=== PATIENT | female | born 1965 | race Caucasian/White ===

== ENCOUNTER 2024-08-15 08:31 | Inpatient (IN) | payer OTHER, SELFPAY ==
[2024-08-09 08:30] VITALS: BMI 23.3
[2024-08-15] VITALS (9 sets, daily range): BP systolic 104–125; BP diastolic 68–80; PULSE 62–89; RESP 12–18; TEMP 36.6–36.7; O2SAT 96–99; BMI 23.6
--- NOTE | 2024-08-15 08:00 | DI.RAD.S_ITS ---
PROCEDURE: XR KNEE LT 1TO2V INDICATIONS: tka TECHNIQUE: 2 view(s) of the knee acquired. COMPARISON: None. FINDINGS: Bones: Patient is status post knee joint arthroplasty. Hardware components are in expected positions. Visualized bony structures are intact. Soft tissues: Overlying postoperative changes are noted. IMPRESSION: Expected post-operative appearance of a knee arthroplasty. Dictated by: Silver Curtis M.D. on 08/15/2024 at 16:06 Approved by: Silver Curtis M.D. on 08/15/2024 at 16:06
[2024-08-15] MEDS: LACTATED RINGERS 1,000 ML 42 ML IV ×2 (08:53→13:37)
[2024-08-15] MEDS: CELECOXIB 200 MG CAPSULE 400 MG PO (09:35)
[2024-08-15] MEDS: ACETAMINOPHEN 325 MG TABLET 975 MG PO ×2 (09:35→15:42)
[2024-08-15] MEDS: VANCOMYCIN 1,000 MG in SODIUM CHLORIDE 0.9% 250 ML 250 MG IV (10:00)
--- NOTE | 2024-08-15 10:46 | PM.PREOP ---
Pre-operative Note Interval Note History & Physical reviewed/Exam performed by Physician: Yes Changes to H&P: No
--- NOTE | 2024-08-15 10:47 | PM.OP.1 ---
Operative Date/Time/Diagnoses Date of procedure: 08/15/24 Time of procedure: 11:30 Pre-op diagnosis: Failed left patellofemoral arthroplasty, left knee OA Post-op diagnosis: same Procedure & Clinicians Procedure: Left total knee arthroplasty complex revision, Same procedure as scheduled: Yes Indications: The patient has had a history of a left knee patellofemoral replacement. She has had failure of her polyethylene on our patellar component on 3 occasions. Her poly is currently failed and she has knee osteoarthritis. She also has a history of a prior tibial tubercle osteotomy. She was brought to the operating room for revision left total knee arthroplasty. Progressively worsening left knee pain with radiographic changes consistent with arthritis. Non-operative management has failed and the patient has requested total knee replacement. The risks, benefits and alternatives to surgery were discussed with the patient prior to proceeding. Risks discussed included, but were not limited to, failure to relieve pain, stiffness, infection, nerve damage, deep venous thrombosis, pulmonary embolism, stroke, coma, heart attack, permanent paralysis and , as well as the potential need for eventual revision of the prosthetic. We discussed in detail concerns regarding her very thin patella and concerns regarding ultimate failure of her extensor mechanism. Unfortunately she has a non cemented patella and a very thin patella. She was already failed this prosthesis 3 times and I think she needs revision to total knee arthroplasty. Surgeon: Gale Eng Conveyor Maintenance Mechanic: Carmen Correa Anesthesia Type: General and Peripheral nerve block Operative Notes Findings: Failed left patellofemoral arthroplasty the patellar component the plastic was grossly displaced and in the suprapatellar pouch. There was significant metal on metal debris. There was no gross loosening of the femoral component. The patella was extremely thin and friable. A metal back patellar component was removed but it was extremely tedious. I used multiple different metal cutting options in order to cut through the posterior pegs in order to preserve as much as possible of the residual patella. Some residual patella shell was available for reconstruction. Really a minimal amount of bone loss occurred but she had a very thin patella to start. The femoral piece in the trochlear groove was removed without difficulty. There was good balance overall. Closure Type: primary Specimen(s): other (Cultures femoral and synovial) Prosthetic devices, grafts, tissues, transplants, or devices: Eng and nephew jaycob BCs us to size 6 femur, size 4 tibia, +9 poly, 32 mm biconvex patellar component Estimated Blood Loss (mL): 250 Blood products transfused: none Tourniquet time (min): 102 Procedure in detail: The patient was seen in the pre-operative area, where the patient identified the left knee as the operative site and this was marked with my initials. The patient received pre-operative antibiotics, and was taken to the operating room and placed on the operative table in the supine position. After satisfactory anesthesia, a multimedia specialist out was performed. The left leg was encircled with a tourniquet about the proximal thigh, and the leg was prepared from the toes to the tourniquet with ChloroPrep in the usual fashion and draped through sterile drapes. The leg was elevated and exsanguinated with Eschmark bandage and the tourniquet inflated to [250] mmHg pressure. A PA was used during the procedure and was essential for intraoperative retraction and safe implantation of the components. The knee was approached through an approximately 24 cm incision centered over the patella and carried into the knee through a medial parapatellar arthrotomy. The loose polyethylene patellar component was found in the suprapatellar pouch. It was carefully removed. I meticulously freed up the patella in order to allow adequate visualization. Attention was initially directed at removing the metal back patella. I carefully freed circumferentially around the patella and then used a combination of multiple small saws including the tPA S saw and multiple metal cutting burs in order to free the surface between the metal backing and the patellar bone. We are as careful as possible in order to avoid injury to the residual patellar bone. I cut through 2 of the pegs on the patellar back component and then meticulously freed around the metal backed patellar component and removed the metal backing in the residual peg as a single unit. I then used a K-wire to drill around the residual pegs and removed the residual pegs. There was some residual bone for the patella. On the most medial aspect portion was noted to have a small crack in it and overall the patella was quite soft and relatively thin. Attention was then directed to the knee replacement. I used a TTS saw to free the trochlear groove component. Portion of the medial and lateral meniscus was resected. A small amount of additional medial and lateral meniscus was resected. Pins were placed for Abdelrahman assisted robotic navigation. The knee was meticulously mapped. I used a robotic Cori robotic bur for the distal femoral resection. We then took off the trochlear femoral component. There was minimal bone loss. Cuts were made for the femoral component. It looked like an adequate resection.. The rotation was assessed and the appropriate size femoral guide was placed on the distal femur and finishing cuts were made. There was no evidence of notching. The anterior, posterior and chamfer cuts were then made. The posterior osteophytes and soft tissues were then removed. The posterior capsule was injected with part of a mixture of 60 ml 0.25% Marcaine mixed with 20 ml Exparel for post operative pain control. The remainder of this mixture was injected into the capsule and subcutaneous tissues during cement curing. The tibial guide was meticulously navigated. It was about 1 mm superior but it is a little unstable so in order to optimize alignment I pinned it to the tibia. The proximal tibial cut was made without difficulty. It did look a little shallow. The patient was placed in extension residual medial and lateral meniscus as well as any residual bone was carefully resected. 2 mm additional tibia was resected ultimately. Hemostasis was achieved especially posteriorly. Additional local was injected into the posterior capsule. The femoral component was trial was placed and the notch was finished. Trial tibial and femoral components were then placed and the knee placed through a range of motion. Initially she was noted to have still a residual flexion contracture. I put up the tourniquet as we had run the tourniquet for an hour and then put it down for more than an hour before we put it up for an additional 42 minutes. She was a little tight both in flexion and extension. I resected an additional 2 mm off of the tibia. That resulted in substantially increased range of motion and good stability throughout range of motion. Range of motion was [0-130], with good stability throughout the range. The trials were then removed, and the tibia was finished. The bone was prepared with pulsatile lavage, and dried with a sponge. Cement was applied and the final prosthetics placed. Excess cement was removed during and after cement curing. In order to optimize patellar fixation we freshened the patellar bone it was an inlay technique. I meticulously placed sutures through the bone and posterior to the cement mantle in order to optimize cementing of the patellar component. The patellar clamp was carefully held during the cementing. The final poly was placed without difficulty. A brief Betadine soak was performed. After confirming there was no extruded cement posteriorly, the final tibial insert was placed. The patellar sutures placed around the patella in order to supplement and improve fixation were then carefully tied. The knee was copiously irrigated and the tourniquet deflated. Hemostasis was obtained with the [Aquamantys system]. The capsule was closed with interrupted # 1 suture. The subcutaneous layer was closed with barbed sutures, and the skin with a running 3-0 V-Lock suture and Surgical glue. An Aquacel Ag dressing was applied and the patient was taken to recovery having tolerated the procedure well. Complications: none Post-operative Condition: stable Disposition: Acute Care Plan for aftercare: The patient will be maintained on a standard total knee replacement protocol with weight bearing as tolerated. She can work on gentle range of motion but I do not want her to do any aggressive quad strengthening for a minimum of 6 weeks postoperatively. The patient will receive aspirin and sequential compression devices for DVT prophylaxis. The patient will be discharged home when safe for the home environment.
[2024-08-15] MEDS: CEFAZOLIN 2 GM/100 ML PREMIX 100 ML IV ×2 (11:08→18:24)
[2024-08-15] MEDS: TRANEXAMIC ACID 1,000 MG VIAL 2000 MG INJ ×2 (11:20→14:50)
--- NOTE | 2024-08-15 11:32 | SUR.OPER ---
Supine on padded OR bed. Pillow under head, arms secured on padded armboards <90 degree abduction. Non-operative leg secured with tape over blanket over lower leg. Operative leg secured in DeMayo/Dillon/Nathe positioner. Foam padded brace at thigh of operative leg.
[2024-08-15] MEDS: BUPIVACAINE 0.25% W/ EPI 30 ML VIAL 60 ML INJ (11:49)
[2024-08-15] MEDS: BUPIVACAINE LIPOSOME 266 MG/20 ML VIAL INJ (11:53)
[2024-08-15] MEDS: ONDANSETRON 4 MG/2 ML INJ IV (15:32)
[2024-08-15] MEDS: hydrOXYzine 50 MG/ML INJ IM (15:32)
[2024-08-15] MEDS: OXYCODONE IR 5 MG TABLET PO ×3 (15:33→22:26)
[2024-08-15] MEDS: IBUPROFEN 400 MG TABLET PO (17:05)
[2024-08-15] MEDS: ASPIRIN EC 81 MG TABLET PO (20:39)
[2024-08-15] MEDS: DOCUSATE 100 MG CAPSULE PO (20:39)
[2024-08-15] MEDS: ACETAMINOPHEN 325 MG TABLET 650 MG PO (22:26)
[2024-08-15] MEDS: LACTATED RINGERS 1,000 ML 100 ML IV (23:06)
[2024-08-16] MEDS: OXYCODONE IR 5 MG TABLET PO ×3 (01:30→08:36)
[2024-08-16] MEDS: IBUPROFEN 400 MG TABLET PO (01:31)
[2024-08-16] MEDS: CEFAZOLIN 2 GM/100 ML PREMIX 100 ML IV (02:49)
[2024-08-16] MEDS: ACETAMINOPHEN 325 MG TABLET 650 MG PO ×2 (04:54→10:10)
[2024-08-16 05:56] LABS: Hematocrit 31.6 % (36-46); Hemoglobin 10.8 g/dL (12.0-16.0)
--- NOTE | 2024-08-16 08:17 | PM.DS.1 ---
History of Present Illness History of Present Illness Date Patient Seen: 08/16/24 Time Patient Seen: 07:45 Chief complaint: Left Total Knee Arthroplasty Revision - Robot Narrative: The patient has had a history of a left knee patellofemoral replacement. She has had failure of her polyethylene on our patellar component on 3 occasions. Her poly is currently failed and she has knee osteoarthritis. She also has a history of a prior tibial tubercle osteotomy. She was brought to the operating room for revision left total knee arthroplasty. Progressively worsening left knee pain with radiographic changes consistent with arthritis. Non-operative management has failed and the patient has requested total knee replacement. The risks, benefits and alternatives to surgery were discussed with the patient prior to proceeding. Risks discussed included, but were not limited to, failure to relieve pain, stiffness, infection, nerve damage, deep venous thrombosis, pulmonary embolism, stroke, coma, heart attack, permanent paralysis and , as well as the potential need for eventual revision of the prosthetic. We discussed in detail concerns regarding her very thin patella and concerns regarding ultimate failure of her extensor mechanism. Unfortunately she has a non cemented patella and a very thin patella. She was already failed this prosthesis 3 times and I think she needs revision to total knee arthroplasty. Discharge Providers Provider Date of admission: 08/15/24 08:31 Discharge Date: 08/16/24 Primary care physician: Iris Colorado PA-C Consults: 08/15/24 08:00 Consult to Anesthesiology Routine Comment: Consulting Provider: Anesthesiologist Reason for consultation: Regional block for post operative pain control 08/15/24 16:05 Consult to Discharge Planning Routine Comment: Consult to Occupational Therapy Evaluate & Treat Comment: Physician Instructions: Evaluate and treat Consult to Physical Therapy Evaluate & Treat Comment: Physician Instructions: postop TKA protocol Discharge provider: Fabián Powell PA-C Summary Hospital Course Discharge Diagnosis: Failed left patellofemoral arthroplasty, left knee OA Hospital Course: Procedure: Left total knee arthroplasty complex revision, Same procedure as scheduled: Yes Surgeon: Gale Eng High Density Finishing Operator: Carmen Correa Anesthesia Type: General and Peripheral nerve block Operative Notes Findings: Failed left patellofemoral arthroplasty the patellar component the plastic was grossly displaced and in the suprapatellar pouch. There was significant metal on metal debris. There was no gross loosening of the femoral component. The patella was extremely thin and friable. A metal back patellar component was removed but it was extremely tedious. I used multiple different metal cutting options in order to cut through the posterior pegs in order to preserve as much as possible of the residual patella. Some residual patella shell was available for reconstruction. Really a minimal amount of bone loss occurred but she had a very thin patella to start. The femoral piece in the trochlear groove was removed without difficulty. There was good balance overall. Closure Type: primary Specimen(s): other (Cultures femoral and synovial) Prosthetic devices, grafts, tissues, transplants, or devices: Eng and nephew journey BCs us to size 6 femur, size 4 tibia, +9 poly, 32 mm biconvex patellar component Estimated Blood Loss (mL): 250 Blood products transfused: none Tourniquet time (min): 102 Status at Discharge Cognitive/behavioral status at discharge: oriented Functional status at discharge: uses cane/walker Time Spent with Patient Time spent: Less than 30 minutes Exam Vital Signs (past 8 hours): Oxygen Delivery Method Room Air Oxygen Flow Rate 0 Narrative Exam Narrative: Patient's pain is controlled with oral medication. ?Pain is localized to surgical site. ?Patient declines any new numbness or tingling at the surgical extremity. ?Patient denies any shortness of breath, dizziness, light-headedness, nausea, vomiting, fever or chills. 5/5 strength in hip flexors, quadriceps, hamstrings, DF, PF, EHL right. 5/5 strength in DF, PF, EHL, 4/5 hip flexors, quadriceps, hamstrings, left. Sensation to light touch intact throughout BLE. Calves soft, compressible, nontender. Dressing placed intraoperatively CDI. Resp Effort & Inspection: normal respiratory effort and able to speak in complete sentences Objective Labs 08/16/24 05:40 Labs: Laboratory Results - last 24 hr 08/16/24 05:40 Hgb 10.8 L Hct 31.6 L PFSH Medical History (Updated 08/09/24 @ 09:17 by Kendal Madrid RN) History of COVID-19 (~2019) Esophageal dilatation Neuropathy Surgical History (Updated 08/09/24 @ 09:10 by Kendal Madrid RN) History of carpal tunnel surgery of right wrist Hx of right knee surgery Hx of tonsillectomy Hx of left knee surgery (09/17/17) Hx of left knee surgery Hx of knee surgery Social History household members: family Smoking Status: Never smoker alcohol intake: current Discharge Assessment & Plan Assessment and Plan Assessment: Status post left knee total arthroplasty revision Plan of Treatment: Discharge to home. ? Ambulate and weight bear as tolerated with assistive devices. ? Aspirin 81 mg twice a day for 6 weeks for DVT prevention. ? Baseline pain relief with acetaminophen 500mg every 4 hours as needed and ibuprofen 400 mg every 4 hours as needed. ?Patient has been prescribed oxycodone 5 mg every 4 ?hours as needed for breakthrough pain. ? Initiate physical therapy in the next 5-10 days. ? Keep dressing clean and dry. Keep dressing on until first office visit. If dressing becomes dirty or disrupted, replace with appropriate sized dressing. Follow up in clinic in 2 weeks for wound check. Contact clinic if there are any questions or concerns. Discharge Plan Discharge Plan Patient Disposition: Home Provider Discharge Comment: DC pending PT approval Discharge orders & Medications Prescriptions: New aspirin 81 mg Tablet,Delayed Release (Dr/Ec) 81 mg PO BID Qty: 90 0RF Continued tizanidine 4 mg Tablet 4 mg PO Q6H PRN (Reason: Pain) ibuprofen [Advil] 200 mg Tablet 400 mg PO DAILY PRN (Reason: Pain) gabapentin 300 mg Capsule 900 mg PO DAILY Patient Comments: 300mg qam, 600mg HS Follow up/Referrals: Iris Colorado PA-C [Primary Care Provider] - Gale Eng MD [Physician] - 08/25/24 3:40 am (Follow up w/ Kera Siu PA-C, at [email or web address] office in [place].) Diet/Activity/Treatments Diet: Diet as Tolerated Activity: Ambulate multiple times a day. Use a cane or walker as needed. Full weight on leg. Cold/Heat Therapy: Use ice multiple times a day. Skin/Wound/Dressing Care Skin care: Leave dressing on. Okay to shower Report to your healthcare provider any signs of infection, such as:: chills, fever, night sweats, unusual drainage and unusual redness Dressing: May shower. Leave dressing in place until follow up in office. No bathing or otherwise soaking incision. Call the office if the dressing becomes saturated inside. Visit Report/Discharge Packet Instructions: DI for Knee Replacement Stand Alone Forms: Patient Portal/API, Stroke Signs & Symptoms, Surgery Discharge Discharge Data Primary Care Provider: Iris Colorado
[2024-08-16] MEDS: ASPIRIN EC 81 MG TABLET PO (08:36)
[2024-08-16] MEDS: GABAPENTIN 300 MG CAPSULE 900 MG PO (08:36)
[2024-08-16] MEDS: polyethylene glycoL 3350 17 GM POWD.PACK PO (08:36)
[2024-08-16] MEDS: DOCUSATE 100 MG CAPSULE PO (08:36)
[2024-08-16 08:42] VITALS: BP 116/77; PULSE 71; RESP 19; TEMP 37; O2SAT 98
--- NOTE | 2024-08-16 10:27 | OT.IP.EVAL ---
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, subsequent encounter (08/15/24) Presence of unspecified artificial knee joint (08/15/24) Surgery Performed Operation Date: 08/15/24 10:45 Actual Procedures p Revision total knee arthroplasty (left)(Left) - Gale Eng MD Past Medical History (Last Updated 08/09/24 @ 09:17 by Kendal Madrid, RN) Esophageal dilatation History of COVID-19 (~2020) Neuropathy Surgical History (Last Updated 08/09/24 @ 09:10 by Kendal Madrid RN) History of carpal tunnel surgery of right wrist Hx of knee surgery Hx of left knee surgery Hx of left knee surgery (09/17/17) Hx of right knee surgery Hx of tonsillectomy Occupational Therapy Inpatient Evaluation/Re-Eval M1 PT/OT-IP Prior Functional Status Start: 08/16/24 10:28 Freq: NEEDED Status: Active Protocol: Document 08/16/24 10:29 [facility] (Rec: 08/16/24 10:39 [facility] [id number]) Medical Review Prior Functional Status Medical History Reviewed Yes Communication I Mobility and Gait Pt did not use a device but had pain during ambulation. Activities of Daily Living and IADL's Pt was completely independent with all ADL and IADL needs. Prior Functional Level (Other details) Pt lives with daughter and roommate that can assist her if needed. Social History Household Members family Living Arrangements House Number of Floors (Floors) One Floor Number of Stairs To Enter/Railing? One step Home Environment High Toilet,Walk in Shower Home Equipment Front Wheel Walker,Shower Seat with Backrest,Hand Held Shower Additional Social History Comment Adjustable bed and gets from the right side. M2 OT-IP Current Condition Start: 08/16/24 10:28 Freq: Status: Active Protocol: Document 08/16/24 10:29 [facility] (Rec: 08/16/24 10:39 [facility] [id number]) Occupational Therapy Current Condition Current Condition Evaluation Date 08/16/24 Treatment Diagnosis S/P L TKA Diagnosis Onset Date 08/15/24 M3 OT- IP Subjective and Pain Start: 08/16/24 10:28 Freq: Status: Active Protocol: Document 08/16/24 10:29 [facility] (Rec: 08/16/24 10:39 [facility] [id number]) OT- Subjective Occupational Therapy Visit Type Type Initial Evaluation Visit Start Time 10:00 Visit Stop Time 10:27 Occupational Therapy Visit Comments Patient Comments Pt agreed to get dressed and use the toilet. Patient/Caregiver Goals TO go home. OT Pain Assessment Pain When Pain Assessed At Rest Pain Present Pain Present Pain Reported Location left knee Intensity 4 Scale Used Numeric (0 - 10) M4 OT- IP ADL's Start: 08/16/24 10:28 Freq: Status: Active Protocol: Document 08/16/24 10:29 [facility] (Rec: 08/16/24 10:39 [facility] [id number]) OT [id number] General Evaluation Self-Feeding Ability Independent OT ADL-Grooming Comments OT Grooming Comments Not performed. OT ADL-Oral Care Comments Oral Care Comments Not performed. OT ADL-Dressing General Eval Lower Body Dressing Ability Minimal Assistance Areas Needing Assistance Shoes Comments OT Dressing Comments Educated to dress the LLE first and take out last. OT ADL-Toileting General Evaluation Toileting Ability Independent Comments OT Toileting Comments VC to be mindful of not excessively twisting her left knee during ADL needs. Pt states uses the toilet often at night and suggested to try to taper water at night and be sure to have night light on. Also to be mindful of the pets at home. OT ADL-Bathing Comments OT Bathing Comments NOt performed. Spoke of care for bandage while showering . Use of FWW to help get into the shower. M5 OT- IP IADL's Start: 08/16/24 10:28 Freq: Status: Active Protocol: Document 08/16/24 10:29 [facility] (Rec: 08/16/24 10:39 [facility] [id number]) OT-Instrumental Activities of Daily Living Deficits IADL Deficits Identified Deficits Home Safety Awareness Awareness of Need for Assistance at Home Good Awareness Ability to Problem Solve Emergency Able to Problem Solve Situations Medication Management Medication Management No Deficits Identified Money Management Money Management No Deficits Identified Meal Preparation Meal Preparation Caregiver Provides Assist. Loader Machine Loader Machine Caregiver Provides Assist M6 OT- IP Functional Cognition Start: 08/16/24 10:28 Freq: Status: Active Protocol: Document 08/16/24 10:29 [facility] (Rec: 08/16/24 10:39 [facility] [id number]) Cognitive Factors Limiting Selfcare Function Cognitive Ability Level of Alertness Alert Patient Orientation Name,Age,Birthday,Month,Date, Year,Day of Week,Place, Situation Attention Span Ability Capable of Focused Attention, Capable of Sustained Attention Ability to Follow Commands Able to Follow Multi-Step Commands Cognitive Comments Cognitive Assessment Comments Intact OT- Vision and Hearing OT- Hearing Assessment OT- Hearing Assessment WFL OT- Vision Assessment Visual Acuity Glasses All The Time Visual Attentiveness WFL Occular Pursuits WFL M7 OT- IP Mobility and Balance Start: 08/16/24 10:28 Freq: Status: Active Protocol: Document 08/16/24 10:29 [facility] (Rec: 08/16/24 10:39 [facility] [id number]) OT- Bed Mobility Assessment Rolling Level of Assistance Independent Supine to Sit Supine to Sit Assist Independent Sit to Supine Sit to Supine Assist Standby Assistance Scooting Scooting to Edge of Bed Independent OT-Transfer Assessment Sit to and From Stand Sit to and from Stand Standby Assistance Transfers Transfer Ability Standby Assistance Technique Transfer Destination Bed,Chair,Toilet Transfer Technique Stand Step Pivot Devices Transfer Assistive Devices Gait Belt,Front Wheeled Walker Comments Mobility Comments Pt able to do all bed mobility and transfer needs with SBA to distant SBA with good safety. Just one initial vc to push up form surfaces when coming to stand. OT- Balance Assessment Sitting Balance and Reactions Static Sitting Balance Ability Normal Dynamic Sitting Balance Ability Normal Standing Balance and Reactions Static Standing Balance Ability Good Dynamic Standing Balance Ability Good M8 OT- IP Objective Assessments Start: 08/16/24 10:28 Freq: Status: Active Protocol: Document 08/16/24 10:29 [facility] (Rec: 08/16/24 10:39 [facility] [id number]) OT Gross Range of Motion Upper Extremity Range of Motion Assessment Within Functional Limits OT Strength Upper Extremity Strength Assessment Within Functional Limits M9 OT- IP Assessment and Plan Start: 08/16/24 10:28 Freq: Status: Active Protocol: Document 08/16/24 10:29 [facility] (Rec: 08/16/24 10:39 [facility] [id number]) OT Summary Assessment and Plan Potential Rehabilitation Potential Excellent Analytic Complexity at Evaluation Low Summary OT Impairments Pain,Balance,Functional Mobility,Dressing,Bathing, Shower Transfers Progress Towards Goals Progressing Toward Goals Assessment Summary Pt low complexity and main barriers are pain and step. Pt has assist at home and to go home when medically stable. Pt set up to have outpt PT. Goals Grooming Goal Independent Dressing Goal Independent Toileting Goal Independent Bathing Goal Independent Toilet Transfer Goal Independent Shower Transfer Goal Independent Days to Meet Goals 2 Frequency of Treatment Frequency Of Treatment Once a Day Treatment Plan OT Treatment Plan ADL Training,Functional Mobility,Patient/Family Education,Discharge Planning Discharge Recommendations OT Discharge Recommendations Home with Assistance, Outpatient PT Transportation Needs at Discharge Private Vehicle
--- NOTE | 2024-08-16 10:45 | PT.IIE ---
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, subsequent encounter (08/15/24) Presence of unspecified artificial knee joint (08/15/24) Surgery Performed Operation Date: 08/15/24 10:45 Actual Procedures p Revision total knee arthroplasty (left)(Left) - Gale Eng MD Surgical History (Last Updated 08/09/24 @ 09:10 by Kendal Madrid, RN) History of carpal tunnel surgery of right wrist Hx of knee surgery Hx of left knee surgery Hx of left knee surgery (09/17/17) Hx of right knee surgery Hx of tonsillectomy Medical History (Last Updated 08/09/24 @ 09:17 by Kendal Madrid RN) Esophageal dilatation History of COVID-19 (~2019) Neuropathy Physical Therapy Inpatient Evaluation/Re-Eval M1 PT/OT-IP Prior Functional Status Start: 08/16/24 12:22 Freq: Status: Active Protocol: Document 08/16/24 10:45 [facility] (Rec: 08/16/24 12:36 [facility] [id number]) Medical Review Prior Functional Status Medical History Reviewed Yes Communication able to make needs known Mobility and Gait pt stated that she was independent with all mobilities and ambulation without AD Social History Household Members family,other Living Arrangements House Number of Floors (Floors) One Floor Number of Stairs To Enter/Railing? 1 step to enter Home Environment Standard Height Toilet,Walk in Shower Home Equipment Front Wheel Walker,Shower Seat with Backrest,Hand Held Shower,Grab Bars Near Toilet, Grab Bars In Shower Additional Social History Comment Pt lives with her daughter and roommate that can assist her if needed. pt has an adjustable bed M2 PT-IP Current Condition Start: 08/16/24 12:22 Freq: Status: Active Protocol: Document 08/16/24 10:45 [facility] (Rec: 08/16/24 12:36 [facility] [id number]) Physical Therapy Current Condition Current Condition Evaluation Date 08/16/24 Treatment Diagnosis s/p L TKA revision; difficulty in walking Onset Date 08/15/24 M3 PT-IP Subjective Start: 08/16/24 12:22 Freq: Status: Active Protocol: Document 08/16/24 10:45 [facility] (Rec: 08/16/24 12:36 [facility] [id number]) Subjective Physical Therapy Visit Type Type Initial Evaluation Visit Start Time 10:45 Visit Stop Time 11:10 Number of CIGAR HEAD STRINGER Visits 0 Physical Therapy Visit Comments Patient Comments agreeable to do PT Therapy Pain Assessment Pain When Pain Assessed At Rest Pain Present Pain Present Pain Reported Location left knee Intensity 5 Scale Used increases to 8/10 with movement Pain Behaviors Guarding,Holding Area Pain Management Techniques Apply Cold,Distraction, Modification of Treatment,Re- positioning,Timing of Activity with Medications M4 PT-IP Mobility and Gait Start: 08/16/24 12:22 Freq: Status: Active Protocol: Document 08/16/24 10:45 [facility] (Rec: 08/16/24 12:36 [facility] [id number]) PT-Bed Mobility Assessment Supine to Sit Supine to Sit Standby Assistance Sit to Supine Sit to Supine Standby Assistance PT-Transfer Assessment Sit to and From Stand Sit to and from Stand Standby Assistance,1 Person Assistance,Use of Upper Extremities Equipment Transfer Assistive Device Gait Belt,Front Wheeled Walker Orthotic/Prosthetic Devices or Brace: No Transfers Transfer Destination Bed,Chair Transfer Technique ambulated Transfer Ability Level of Assist Standby Assistance,Contact Guard Assistance,1 Person Assistance,Use of Upper Extremities Comments Mobility Comments pt sitting on the chair and agreeable to do PT. obtained PLOF and home set up. reviewed HEP and pt's restriction of no aggressive quads strengthening per Dr. Eng's note. pt understood. pt completed sit to stand from chair SBA. ambulated in room using FWW ~ 30 ft initial CGA and then SBA after a few feet of walking. cued for steadiness and safety. pt sat on EOB. completed sit<>supine SBA. pt used RLE to assist LLE to move in bed. educated pt on bed mobility techniques for easier transition. sit to stand SBA and ambulated towards platform step using FWW SBA. pt completed up/down platform step using FWW CGA and cues for techniques. pt ambulated back to chair SBA using fWW. positioned pt on the chair. call light and table placed within reach. pt without further concerns. Gait Assessment Gait Gait Assistance Required: Standby Assistance,Contact Guard Assist Distance (Feet) 30 Able to Maintain Weight Bearing Status Yes During Gait Assistive Devices Assistive Device Gait Belt,Front Wheeled Walker Orthotic/Prosthetic Devices or Brace: No Gait Deviations General Gait Pattern Antalgic,Decreased Stride Length,Decreased Feet Clearance Factors Limiting Gait Function Factors Limiting Gait Function Decreased Activity Tolerance, Decreased Strength,Limited Range of Motion,Pain,Poor Balance Stair Climbing Assessment Evaluation Level of Assist On Stairs Contact Guard Assistance,1 Person Assistance Devices Stair Climbing Assistive Devices Front Wheel Walker Technique/Endurance Stair Climbing Direction Ascend and Descend Stair Climbing Technique Step to Step Number of Steps Climbed 1 Query Text: Stair Climbing Set # Repetitions (reps) 2 PT-Balance Assessment Sitting Balance and Reactions Static Sitting Balance Ability Normal Dynamic Sitting Balance Ability Normal Standing Balance and Reactions Static Standing Balance Ability Good Dynamic Standing Balance Ability Fair Device Used FWW M5 PT-IP Objective Assessments Start: 08/16/24 12:22 Freq: Status: Active Protocol: Document 08/16/24 10:45 [facility] (Rec: 08/16/24 12:36 [facility] [id number]) Orientation Orientation/Cognition Level of Alertness Alert Orientation Name,Place,Situation Language Function Ability No Deficits Noted Safety Awareness Understands Safety Issues Memory Description No Deficits Noted Strength Lower Extremity Strength Assessment Left Impaired Hip 3+/5 Knee 3+/5 Sensation Assessment Sensation Gross Sensation WNL Muscle Tone Muscle Tone WNL Yes M6 PT-IP Treatment Start: 08/16/24 12:22 Freq: Status: Active Protocol: Document 08/16/24 10:45 [facility] (Rec: 08/16/24 12:36 [facility] [id number]) Physical Therapy Treatment Education Education Provided Precautions,Weight Bearing Status,Post-Op Packet,Safety M7 PT-IP Assessment and Plan Start: 08/16/24 12:22 Freq: Status: Active Protocol: Document 08/16/24 10:45 [facility] (Rec: 08/16/24 12:36 [facility] [id number]) PT Summary Assessment and Plan Potential Rehabilitation Potential Good Status of Condition at Evaluation Stable Summary Impairments Pain,ROM,Strength,Balance, Coordination,Bed Mobility, Transfers,Gait,Activity Tolerance Assessment Summary pt is a 58 y/o F s/p L TKA revision POD 1. pt is WBAT and per Dr. Eng's note: no aggressive quads strengthening . pt requiring SBA to CGA with mobility using FWW and will have her daughter and roommate to assist her if needed. pt has outpt PT setup. Goals Bed Mobility Goal Independent Transfer Goal Independent,Front Wheeled Walker Gait Goal Independent,Front Wheel Walker Gait Distance 250 Other Goals up/down 1 step using FWW mod I Days to Meet Goals 3 Frequency of Treatment Frequency Of Treatment Twice a Day Treatment Plan Physical Therapy Treatment Plan Bed Mobility Training,Transfer Training,Gait Training, Therapeutic Exercise,Balance Retraining,Post Op Education, Discharge Planning,Hot or Cold Pack,Neuromuscular Re-ed, Coordination Retraining,Manual Therapy Precautions Other Precautions LLE: no aggressive quads strengthening Weight Bearing Status Weight Bearing Status Weight Bear as Tolerated Allowed Weight Bearing Amount (enter % LLE WBAT or #) (%) Recommendations To Nursing Amount of Assist Needed Standby Assistance Discharge Recommendations PT Discharge Recommendations Home with Assistance, Outpatient PT Transportation Needs at Discharge Private Vehicle - PT assist 1
--- NOTE | 2024-08-16 12:44 | PC.NURSE ---
patient D/C note: Patient education done at bedside with patient and daughter. Patient states understanding of teaching, agrees to sched. post op appt w/ surgery. Patient was able to ambulate to with FWW at [facility]. Patient is A&O x4, VSS. Belongings gathered by daughter. Pt escorted down to private vehicle and required no assistance getting into vehicle. IV was removed by JOANNA Feilz.
== END 2024-08-16 12:20 | disposition home or self-care (01) | DRG 326 ==
PROVIDERS: Admitting Provider Orthopaedic Surgery; PCP Physician Assistant Medical; Referring Provider Orthopaedic Surgery; Visit Provider Orthopaedic Surgery
PROC: 0SRD0J9 Replacement of Left Knee Joint with Synthetic Substitute, Cemented, Open Approach (ICD-10-PCS; principal; 2024-08-15 10:45)
DX: T84.063A Wear of articular bearing surface of internal prosthetic left knee joint, initial encounter (principal); M17.12 Unilateral primary osteoarthritis, left knee; T84.023A Instability of internal left knee prosthesis, initial encounter; T84.033A Mechanical loosening of internal left knee prosthetic joint, initial encounter; G62.9 Polyneuropathy, unspecified; Y79.2 Prosthetic and other implants, materials and accessory orthopedic devices associated with adverse incidents
CPT/HCPCS: 36415; 64450; 73560; 85014; 85018; 87070; 87075; 87176; 87205; 97161; 97165; 97530; 97535; C1776; C1713; J0666; J0690; J1100; J1171; J1885; J2250; J2405; J2704; J3010; J3410